=== PATIENT | female | born 1995 | race Caucasian/White ===

== ENCOUNTER 2020-05-04 17:00 | Inpatient (IN) ==
[2020-05-04] MEDS: LACTATED RINGERS 1,000 ML IV SCH (17:45)
[2020-05-04] MEDS ORDERED: MEPERIDINE 50 MG/1 ML VIAL IV PRN (17:48)
[2020-05-04] MEDS ORDERED: AMPICILLIN INJ 2,000 MG in SODIUM CHLORIDE 0.9% 100 ML IV ONE (17:51)
[2020-05-04] MEDS ORDERED: OXYTOCIN/LR 20 UNIT/1,000 ML BAG IV SCH (18:00)
[2020-05-04 18:02] LABS: Basophils % 0.1 % (0.0-0.8); Eosinophils % 0.4 % (0.00-10.9); Hemoglobin 9.7 GM/DL (12.0-16.0); Immature Granulocytes % 0.4 %; Immature Granulocytes Absolute 0.04 #; Lymphocytes # 1.6 10*3/uL (1.4-4.0); Lymphocytes % 16.8 % (21.3-54.2); Mean Corpuscular HGB Conc 31.3 GM/DL (32-36); Mean Corpuscular Volume 77.3 FL (87-102); Mean Platelet Volume 10.8 FL (9.6-12.0); Monocytes % 8.3 % (1.7-12.7); Platelet Count 148 T/CUMM (130-400); Red Blood Count 4.01 MC/CUMM (3.8-5.5); Red Cell Distribution Width 14.2 % (9.3-17.3); White Blood Count 9.3 T/CUMM (4-12)
[2020-05-04 19:27] LABS: Rubella Antibody IgG Result Reactive (NonReactive)
[2020-05-04] MEDS ORDERED: ACETAMINOPHEN 500 MG TABLET PO ONE (19:50)
[2020-05-04] MEDS: AMPICILLIN INJ 1,000 MG in SODIUM CHLORIDE 0.9% 100 ML IV SCH (23:06)
[2020-05-05] MEDS: ONDANSETRON 4 MG/2 ML VIAL IV PRN ×2 (02:51→12:50)
[2020-05-05] MEDS: BUTORPHANOL 2 MG/ML VIAL IV PRN ×4 (02:55→12:54)
[2020-05-05] MEDS: AMPICILLIN INJ 1,000 MG in SODIUM CHLORIDE 0.9% 100 ML IV SCH ×4 (03:14→14:11)
[2020-05-05] MEDS: LACTATED RINGERS 1,000 ML IV SCH ×2 (03:14→09:10)
[2020-05-05] MEDS ORDERED: TRANEXAMIC ACID 1,000 MG/10 ML VIAL ONE (10:28)
[2020-05-05] MEDS ORDERED: OXYTOCIN/LR 20 UNIT/1,000 ML BAG IV ONE ×3 (10:28→18:18)
[2020-05-05] MEDS ORDERED: miSOPROStoL 200 MCG TABLET ONE ×2 (10:28→16:19)
[2020-05-05] MEDS ORDERED: METHYLERGONOVINE 0.2 MG/1 ML AMP ONE ×2 (10:29→16:20)
[2020-05-05] MEDS ORDERED: CARBOPROST TROMETHAMINE 250 MCG/ML AMP IM ONE ×2 (10:29→16:20)
[2020-05-05] MEDS ORDERED: TERBUTALINE 1 MG/1 ML VIAL SUBCUT ONE (15:48)
[2020-05-05] MEDS ORDERED: CITRIC ACID/SODIUM CITRATE 30 ML UDCUP PO ONE (15:56)
[2020-05-05] MEDS ORDERED: LACTATED RINGERS 1,000 ML IV ONE ×2 (15:56→17:40)
[2020-05-05] MEDS ORDERED: FAMOTIDINE 20 MG/2 ML VIAL IV ONE (15:56)
[2020-05-05] MEDS ORDERED: ceFAZolin 3,000 MG in SYRINGE 1 EACH IV ONE (15:57)
[2020-05-05] MEDS ORDERED: SODIUM CHLORIDE 0.9% 0 ML IV ONE (16:04)
[2020-05-05] MEDS ORDERED: ONDANSETRON 4 MG/2 ML VIAL ONE (17:14)
[2020-05-05] MEDS ORDERED: MORPHINE 10 MG/10 ML VIAL ONE (17:16)
[2020-05-05] MEDS ORDERED: BUPIVACAINE SPINAL 0.75% 2 ML AMP SPINAL ONE (17:16)
[2020-05-05] MEDS ORDERED: METOCLOPRAMIDE 10 MG/2 ML VIAL ONE (18:03)
[2020-05-05 18:04] LABS: Cord Arterial Blood HCO3 19.7 MMOL/L
[2020-05-05 18:07] LABS: Cord Venous Blood HCO3 21.4 MMOL/L; Cord Venous Blood PCO2 40.6 MMHG; Cord Venous Blood PO2 28.3
[2020-05-05] MEDS ORDERED: PHENYLEPHRINE 1 MG/10 ML SYRINGE IV ONE (18:08)
[2020-05-05 18:14] LABS: Bacteria,Urine Occasional /HPF (Few); Bilirubin,Urine Negative (Negative); Blood, Urine Negative (Negative); Glucose,Urine (UA) Negative (Negative); Ketones,Urine 20 mg/dL (Negative); Nitrite,Urine Negative (Negative); Protein,Urine Negative; RBC,Urine <1 /HPF (0-4); Urine Appearance CLEAR (Clear); Urine Color Yellow (Yellow); Urine Specific Gravity 1.015 (1.001-1.035); Urine Urobilinogen < 2.0 EU/DL (0.2-1.0); WBC,Urine <1 /HPF (0-6)
[2020-05-05] MEDS ORDERED: RHO(D) IMMUNE GLOBULIN 300 MCG SYRINGE IM ONE (18:18)
[2020-05-05] MEDS ORDERED: MAGNESIUM HYDROXIDE SUSP 30 ML UDCUP PO PRN (18:18)
[2020-05-05] MEDS ORDERED: SIMETHICONE CHEW 80 MG TABLET PO PRN (18:18)
[2020-05-05] MEDS ORDERED: ONDANSETRON 4 MG/2 ML VIAL IV PRN (18:18)
[2020-05-05] MEDS ORDERED: ACETAMINOPHEN 325 MG TABLET PO PRN (18:18)
[2020-05-05] MEDS ORDERED: oxyCODONE/ACETAMINOPHEN 5-325 MG TABLET PO PRN (18:20)
[2020-05-05] MEDS ORDERED: LACTATED RINGERS 1,000 ML IV SCH (18:30)
[2020-05-05] MEDS ORDERED: DEXAMETHASONE 4 MG/1 ML VIAL ONE (18:32)
[2020-05-05] MEDS ORDERED: BUPIVACAINE MPF 0.25% 30 ML VIAL ONE (18:32)
[2020-05-05] MEDS ORDERED: ceFAZolin 1,000 MG in SYRINGE 1 EACH IV SCH (21:00)
[2020-05-05] MEDS: DOCUSATE SODIUM 100 MG CAPSULE PO SCH (22:59)
[2020-05-06] MEDS: ceFAZolin 2,000 MG in PREMIX 1 EACH IV SCH ×2 (00:25→08:40)
[2020-05-06 00:34] LABS: Basophils % 0.1 % (0.0-0.8); Hematocrit 27.4 VOL% (35.7-47.0); Hemoglobin 8.6 GM/DL (12.0-16.0); Immature Granulocytes % 0.6 %; Immature Granulocytes Absolute 0.08 #; Lymphocytes # 0.8 10*3/uL (1.4-4.0); Lymphocytes % 6.4 % (21.3-54.2); Mean Corpuscular HGB Conc 31.4 GM/DL (32-36); Mean Corpuscular Volume 76.5 FL (87-102); Mean Platelet Volume 10.8 FL (9.6-12.0); Monocytes % 4.6 % (1.7-12.7); Neutrophils % 88.3 % (38.7-73.9); Platelet Count 131 T/CUMM (130-400); Red Blood Count 3.58 MC/CUMM (3.8-5.5); Red Cell Distribution Width 14.4 % (9.3-17.3)
[2020-05-06] MEDS: IBUPROFEN 800 MG TABLET PO PRN ×3 (06:09→22:42)
[2020-05-06 07:07] LABS: Basophils % 0.2 % (0.0-0.8); Eosinophils % 0.1 % (0.00-10.9); Hematocrit 27.6 VOL% (35.7-47.0); Hemoglobin 8.6 GM/DL (12.0-16.0); Immature Granulocytes % 0.5 %; Immature Granulocytes Absolute 0.06 #; Lymphocytes # 1.6 10*3/uL (1.4-4.0); Mean Corpuscular HGB Conc 31.2 GM/DL (32-36); Mean Corpuscular Volume 78.4 FL (87-102); Mean Platelet Volume 11.3 FL (9.6-12.0); Monocytes % 6.4 % (1.7-12.7); Neutrophils % 80.8 % (38.7-73.9); Platelet Count 142 T/CUMM (130-400); Red Blood Count 3.52 MC/CUMM (3.8-5.5); Red Cell Distribution Width 14.6 % (9.3-17.3); White Blood Count 12.9 T/CUMM (4-12)
[2020-05-06 08:05] LABS: Hypochromasia 1+; Microcytosis 1+
[2020-05-06 08:06] LABS: Platelet Estimate Adequate
[2020-05-06] MEDS: FERROUS SULFATE 325 MG TABLET PO SCH ×2 (08:50→21:03)
[2020-05-06] MEDS: DOCUSATE SODIUM 100 MG CAPSULE PO SCH ×2 (08:50→21:03)
[2020-05-06] MEDS: oxyCODONE/ACETAMINOPHEN 5-325 MG TABLET PO PRN ×2 (08:50→14:16)
[2020-05-06] MEDS: MULTIVITAMIN (PRENATAL) TABLET PO SCH (08:50)
[2020-05-07] MEDS: MULTIVITAMIN (PRENATAL) TABLET PO SCH (08:23)
[2020-05-07] MEDS: DOCUSATE SODIUM 100 MG CAPSULE PO SCH (08:23)
[2020-05-07] MEDS: oxyCODONE/ACETAMINOPHEN 5-325 MG TABLET PO PRN (08:24)
[2020-05-07] MEDS: FERROUS SULFATE 325 MG TABLET PO SCH (08:24)
[2020-05-07] MEDS: IBUPROFEN 800 MG TABLET PO PRN (08:25)
[2020-05-07 09:16] VITALS: BP 141/72
== END 2020-05-07 14:15 | disposition home or self-care (01) | DRG 788 ==
LOC: N.LDOUT 17:00 → N.LD 17:04 → N.OB 05-05 22:15
PROVIDERS: ADMIT Obstetrics & Gynecology; ATTEND Obstetrics & Gynecology
PROC: LDCSECT (ICD-10-PCS; 2020-05-05 17:00)